=== PATIENT | male | born 1965 | race Caucasian/White ===

== ENCOUNTER 2017-02-18 11:56 | Emergency (ER) | payer OTHER ==
[2017-02-18 12:21] VITALS: BP 124/91; PULSE 74; TEMP 97.7; BMI 26.3
--- NOTE | 2017-02-18 14:19 | PDOC ---
History of Present Illness - General Chief Complaint: Laceration Stated Complaint: LACERATION TO HEAD Time Seen by Provider: 02/18/17 13:33 - History of Present Illness Initial Comments: 02/18/17 14:13 CHIEF COMPLAINT: lac to head HISTORY OF PRESENT ILLNESS: 51 yo M with no PMH presents to fast track with laceration to forehead. 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 " Patient denies pain, LOC, dizziness, headache, vomiting, or injury to any other part of the obdy, and states "I wouldn't have even come here if it weren' t for my boss saying she has to write a report." No recent travel or sick contacts. PAST MEDICAL HISTORY: Denies past medical history FAMILY HISTORY: Denies SOCIAL HISTORY:Denies tobacco, alcohol, illicit drug use. SURGICAL HISTORY: Denies ALLERGIES: No known drug allergies REVIEW OF SYSTEMS General/Constitutional: Denies fever or chills. Denies weakness, weight change. HEENT: Denies change in vision. Denies ear pain or discharge. Denies sore throat. Cardiovascular: Denies chest pain or shortness of breath. Respiratory: Denies cough, wheezing, or hemoptysis. Gastrointestinal: Denies nausea, vomiting, diarrhea or constipation. Denies rectal bleeding. Genitourinary: Denies dysuria, frequency, or change in urination. Musculoskeletal: Denies joint or muscle swelling or pain. Denies neck or back pain. Skin: "I have a little cut on my forehead." PHYSICAL EXAM General Appearance: Well-appearing, appropriately dressed. No apparent distress , no intoxication. HEENT: EOMI, PERRLA. Respiratory/Chest: Lungs CTAB. Cardiovascular: RRR. S1, S2. Musculoskeletal/Extremities: Normal inspection. FROM of all extremities, normal capillary refill. Pelvis Stable. No CVA tenderness. No tenderness to extremities, pedal edema, swelling, erythema or deformity. Integumentary: 1 cm superficial lac to medial forehead, no bleeding on exam. Appropriate color, dry, warm. 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 Fully oriented, alert. Appropriate mood/affect. Motor strength 5/5. No appreciable EOM palsy, facial droop or sensory deficit. Past History - Past Medical History Allergies/Adverse Reactions: Allergies Allergy/AdvReac Type Severity Reaction Status Date / Time No Known Allergies Allergy Verified 02/18/17 12:17 Home Medications: Ambulatory Orders NK [No Known Home Medication] 02/18/17 Other medical history: DENIES. - Psycho/Social/Smoking Cessation Hx Suicidal Ideation: No Smoking History: Current some day smoker Have you smoked in the past 12 months: Yes Information on smoking cessation initiated: No *Physical Exam - Vital Signs Last Vital Signs Temp Pulse Resp BP Pulse Ox 97.7 F 74 19 124/91 99 02/18/17 12:18 02/18/17 12:18 02/18/17 12:18 02/18/17 12:18 02/18/17 12:18 Medical Decision Making - Medical Decision Making 02/18/17 14:18 51 yo M with no PMH presents to fast track with laceration to forehead. Superficial laceration to R forehead, lac repair with Dermabond performed. Patient states he is UTD with tetanus shot. Advised patient of signs and symptoms for return to ER; patient verbalized understandinga nd agrees to plan. *DC/Admit/Observation/Transfer Diagnosis at time of Disposition: Laceration - Discharge Dispostion Disposition: HOME Condition at time of disposition: Stable Admit: No - Patient Instructions Printed Discharge Instructions: DI for Laceration Repair Additional Instructions: Please keep area of injury clean and dry for the next 24 hours. If you experience any dizziness, headache, vomiting, change in vision, difficulty speaking or swallowing, or difficult walking, or any new or worsening symptoms, please return to the ER.
== END 2017-02-18 14:24 | disposition home or self-care (01) ==
LOC: JERFT 11:56
PROC: 0HQ1XZZ Repair Face Skin, External Approach (ICD-10-PCS; principal; 2017-02-18)
DX: S01.81XA Laceration without foreign body of other part of head, initial encounter (principal); W22.8XXA Striking against or struck by other objects, initial encounter; Y93.89 Activity, other specified; Y92.9 Unspecified place or not applicable; Y99.0 Civilian activity done for income or pay; F17.210 Nicotine dependence, cigarettes, uncomplicated
CPT/HCPCS: 99281-25